=== PATIENT | female | born 1965 | race Caucasian/White ===

== ENCOUNTER 2018-01-04 22:50 | Observation (INO) | payer BC ==
[2018-01-04] MEDS ORDERED: NITROGLYCERIN OINT 1 INCH/GM PACKET TOPICAL STA (23:12)
[2018-01-04] MEDS ORDERED: LORazepam 2 MG/ML INJ IV STA (23:12)
[2018-01-04] MEDS ORDERED: ASPIRIN 81 MG PO STA (23:12)
--- NOTE | 2018-01-04 23:15 | ED ---
Chest Pain HPI - General Chief Complaint: Chest Pain Stated Complaint: Shoulder Pain/Chest Pain Time Seen by Provider: 01/04/18 23:02 Source: patient Mode of arrival: ambulatory Limitations: no limitations - History of Present Illness Initial Comments: This 52-year-old white female presents with a complaint of some left-sided chest pain. This seems to radiate into her left neck and left arm. She complains of some left arm numbness. She also complains of having occasional blurry vision. She denies any previously known cardiac or pulmonary problems. She denies any leg pain or swelling. She denies any history DVT or PE. She has never had a stress test or heart catheterization. She does complain of increased stress related to her 16-year-old. She apparently was hyperventilating earlier and feels as though she may have a degree of anxiety reaction. No other complaints or modifying factors. - Related Data Home Medications Medication Instructions Recorded Confirmed Cholecalciferol [Vitamin D3] 1,000 unit PO DAILY 01/04/18 01/04/18 Cyanocobalamin (Vitamin B-12) 1,000 mcg PO DAILY 01/04/18 01/04/18 [Vitamin B-12] HYDROcodone/APAP 7.5-325MG [[place] 1 tab PO Q4H PRN 01/04/18 01/04/18 7.5-325] Multivitamins, Thera [Multivitamin 1 tab PO DAILY 01/04/18 01/04/18 (formulary)] Allergies Allergy/AdvReac Type Severity Reaction Status Date / Time No Known Allergies Allergy Verified 01/04/18 23:16 Review of Systems ROS Statement: Those systems with pertinent positive or pertinent negative responses have been documented in the HPI. ROS Other: All systems not noted in ROS Statement are negative. Past Medical History Past Medical History: No Reported History History of Any Multi-Drug Resistant Organisms: None Reported Past Surgical History: Breast Surgery, Cholecystectomy, Hysterectomy Past Psychological History: No Psychological Hx Reported Smoking Status: Current every day smoker Past Alcohol Use History: None Reported Past Drug Use History: Marijuana General Exam - General Exam Comments Initial Comments: GENERAL: The patient is well nourished and well hydrated. VITAL SIGNS: Heart rate, blood pressure, respiratory rate reviewed as recorded in nurse's notes. EYES: Pupils are round and reactive. Extraocular movements are intact. No conjunctival / lid redness or swelling. ENT: No external evidence of injury, swelling, or ecchymosis. Airway is patent. Throat is clear. NECK: Nontender. No swelling or evidence of injury. No subcutaneous emphysema. Trachea is midline. No thyroid mass. HEART: Regular rate and rhythm. Good peripheral pulses. LUNGS/CHEST: Breath sounds clear and equal bilaterally. No rales, rhonchi, or wheezes. No ecchymosis, subcutaneous emphysema, or tenderness. ABDOMEN: Abdomen soft without tenderness. No palpable masses or organomegaly. No peritoneal signs. No abdominal wall swelling or ecchymosis. EXTREMITIES: No extremity tenderness. Normal muscle tone and function. No thoracolumbar tenderness. NEUROLOGIC: Sensation is grossly intact. Cranial nerve exam reveals face is symmetrical, tongue is midline, speech is clear. SKIN: No abrasions or ecchymosis is noted. No induration or masses noted. PSYCHIATRIC: Alert and oriented. Appropriate behavior and judgment. Appears anxious at times. Limitations: no limitations Course Vital Signs 01/04/18 22:52 Temperature 98.0 F Pulse Rate 80 Respiratory 20 Rate Blood Pressure 161/77 O2 Sat by Pulse 99 Oximetry Chest Pain MDM - MDM The patient was seen and examined. All diagnostics are reviewed. An EKG is done and this shows a normal sinus rhythm at a rate of 64. There is no acute ST -T wave changes noted. DE intervals 146, QRS duration is 76, and the QTC intervals 408. The patient receives some aspirin, Nitropaste, and Ativan. The chest x-ray does not show any acute processes. The cardiac profile labs are all essentially within normal limits. The patient is feeling much improved on recheck. The exact cause of her symptoms is not definitively determine but is felt as though the possibility of acute coronary syndrome is viable option. The possibility of this being related to anxiety it is possible as well. Is felt as though she would require admission for further Cardiologic workup. She is agreeable. Case will be discussed with internal medicine shortly patient is admitted for observation. Disposition Clinical Impression: Unstable angina pectoris, Chest pain, Anxiety, Hypertension Disposition: ADMITTED IP TO THIS [facility] Condition: Fair Time of Disposition: 00:37 Decision Date: 01/05/18 Decision Time: 00:37
[2018-01-04 23:26] LABS: Basophils % (A) 0 %; Eosinophils # (A) 0.2 k/uL (0-0.7); Eosinophils % (A) 2 %; HCT 37.4 % (34.0-46.0); HGB 12.7 gm/dL (11.4-16.0); Lymphocytes # (A) 3.1 k/uL (1.0-4.8); Lymphocytes % (A) 29 %; MCH 29.8 pg (25.0-35.0); MCV 87.7 fL (80.0-100.0); Monocytes # (A) 0.6 k/uL (0-1.0); Monocytes % (A) 6 %; Neutrophils # (A) 6.6 k/uL (1.3-7.7); Neutrophils % (A) 61 %; Platelet Count 429 k/uL (150-450); RBC 4.26 m/uL (3.80-5.40); RDW 12.9 % (11.5-15.5); WBC 10.8 k/uL (3.8-10.6)
[2018-01-04 23:35] LABS: ALT 26 U/L (9-52); AST 31 U/L (14-36); Albumin 4.4 g/dL (3.5-5.0); Alkaline Phosphatase 83 U/L (38-126); Anion Gap 9 mmol/L; Blood Urea Nitrogen 22 mg/dL (7-17); Calcium 10.2 mg/dL (8.4-10.2); Carbon Dioxide 32 mmol/L (22-30); Chloride 105 mmol/L (98-107); Glucose 106 mg/dL (74-99); Magnesium 1.7 mg/dL (1.6-2.3); Potassium 4.3 mmol/L (3.5-5.1); Sodium 146 mmol/L (137-145); Total Bilirubin 0.2 mg/dL (0.2-1.3); Total Protein 6.9 g/dL (6.3-8.2)
[2018-01-04 23:39] LABS: Partial Thromboplastin Time 25.2 sec (22.0-30.0); Prothrombin Time 9.7 sec (9.0-12.0)
[2018-01-04 23:47] LABS: Creatine Kinase 82 U/L (30-135)
[2018-01-05] LABS: Creatine Kinase MB 0.9 ng/mL (0.0-2.4); Troponin I <0.012 ng/mL (0.000-0.034)
--- NOTE | 2018-01-05 00:05 | XR ---
EXAMINATION TYPE: XR chest 2V DATE OF EXAM: 01/04/2018 COMPARISON: NONE HISTORY: Chest pain TECHNIQUE: Frontal and lateral views of the chest are obtained. FINDINGS: Heart and mediastinum are normal. Lungs are clear. Diaphragm is normal. Bony thorax is int act. IMPRESSION: Normal chest
[2018-01-05] MEDS ORDERED: NITROGLYCERIN SL TABS 0.4 MG TAB SUBLINGUAL PRN (00:38)
[2018-01-05] MEDS ORDERED: ACETAMINOPHEN TAB 325 MG TAB PO PRN (00:38)
[2018-01-05] MEDS ORDERED: HYDROcodone/APAP 7.5-325MG 1 EACH TAB PO PRN (00:40)
[2018-01-05 06:14] LABS: Creatine Kinase 68 U/L (30-135)
[2018-01-05 06:27] LABS: Creatine Kinase MB 1.1 ng/mL (0.0-2.4); Troponin I <0.012 ng/mL (0.000-0.034)
[2018-01-05] MEDS: NITROGLYCERIN OINT 1 INCH/GM PACKET TOPICAL SCH ×3 (06:32→21:23)
[2018-01-05 12:15] LABS: Creatine Kinase 69 U/L (30-135)
[2018-01-05 12:26] LABS: Troponin I <0.012 ng/mL (0.000-0.034)
[2018-01-05] MEDS: CYANOCOBALAMIN 500 MCG TAB PO SCH (14:50)
[2018-01-05] MEDS: MULTIVITAMINS, THERA 1 EACH TAB PO SCH (14:50)
[2018-01-05] MEDS: CHOLECALCIFEROL 1,000 UNIT TAB PO SCH (14:50)
[2018-01-05] MEDS: ENOXAPARIN 40 MG/0.4 ML SYRINGE SQ SCH (14:51)
[2018-01-05] MEDS: METOPROLOL TARTRATE 25 MG TAB PO SCH ×2 (14:51→21:23)
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
--- NOTE | 2018-01-05 16:47 | ECHOF ---
Referral Reason:cp MEASUREMENTS -------- HEIGHT: 152.4 cm WEIGHT: 77.1 kg BP: RVIDd: 2.5 cm (< 3.3) IVSd: 1.1 cm (0.6 - 1.1) LVIDd: 3.7 cm (3.9 - 5.3) LVPWd: 1.0 cm (0.6 - 1.1) IVSs: 1.3 cm LVIDs: 2.3 cm LVPWs: 1.1 cm LA Diam: 3.3 cm (2.7 - 3.8) LAESV Index (A-L): 20.44 ml/m Ao Diam: 2.8 cm (2.0 - 3.7) AV Cusp: 1.9 cm (1.5 - 2.6) LA Diam: 3.5 cm (2.7 - 3.8) MV EXCURSION: 17.007 mm (> 18.000) MV EF SLOPE: 71 mm/s (70 - 150) EPSS: 0.3 cm MV E Demond: 0.54 m/s MV DecT: 260 ms MV A Demond: 0.60 m/s MV E/A Ratio: 0.89 RAP: 5.00 mmHg RVSP: 24.69 mmHg FINDINGS -------- Sinus rhythm. This was a technically good study. LV size, wall thickness and systolic function are normal, with an EF greater than 55%. The left binh tricular size is normal. The right ventricle is normal in size. Normal LA size by volume 22+/-6 ml/m2. The right atrial size is normal. The aortic valve is trileaflet, and appears structurally normal. No aortic stenosis or regurgitation. Mild mitral regurgitation is present. Mild tricuspid regurgitation present. There is no evidence of pulmonary hypertension. The right v entricular systolic pressure, as measured by Doppler, is 24.69mmHg. There is no pulmonic regurgitation present. The aortic root size is normal. There is no pericardial effusion. CONCLUSIONS -------- 1. LV size, wall thickness and systolic function are normal, with an EF greater than 55%. 2. The left ventricular size is normal. 3. The aortic valve is trileaflet, and appears structurally normal. No aortic stenosis or regurgitati on. 4. Mild mitral regurgitation is present. 5. Mild tricuspid regurgitation present. 6. There is no evidence of pulmonary hypertension. 7. The right ventricular systolic pressure, as measured by Doppler, is 24.69mmHg. 8. There is no pulmonic regurgitation present. 9. The aortic root size is normal. 10. There is no pericardial effusion. SENIOR MANAGER CREATIVE SERVICES: Meme Merrill RDCS
[2018-01-05] MEDS: ALPRAZolam 0.5 MG TAB PO PRN (17:43)
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
[2018-01-06] MEDS: NITROGLYCERIN OINT 1 INCH/GM PACKET TOPICAL SCH ×2 (00:32→05:42)
[2018-01-06 08:58] VITALS: RESP 16
[2018-01-06] MEDS ORDERED: ASPIRIN 325 MG TAB PO SCH (09:00)
[2018-01-06] MEDS ORDERED: ASPIRIN 81 MG PO SCH (09:00)
[2018-01-06] MEDS: CHOLECALCIFEROL 1,000 UNIT TAB PO SCH (10:20)
[2018-01-06] MEDS: CYANOCOBALAMIN 500 MCG TAB PO SCH (10:20)
[2018-01-06] MEDS: METOPROLOL TARTRATE 25 MG TAB PO SCH (10:20)
[2018-01-06] MEDS: MULTIVITAMINS, THERA 1 EACH TAB PO SCH (10:20)
[2018-01-06] MEDS: ENOXAPARIN 40 MG/0.4 ML SYRINGE SQ SCH (10:20)
--- NOTE | 2018-01-06 11:50 | P.PN ---
Subjective Progress Note Date: 01/06/18 Mrs. Prajapati is seen today in follow-up. She states her chest pain has subsided but she still feels a mild discomfort in the left neck region. No specific aggravating or alleviating factors. Cardiac enzymes negative x3, telemetry tracings have been unremarkable. We will proceed with stress echocardiogram today as discussed yesterday. She is agreeable. Objective - Vital Signs Vital signs: Vital Signs Temp 97.7 F 01/06/18 08:00 Pulse 73 01/06/18 08:00 Resp 16 01/06/18 08:00 BP 121/76 01/06/18 08:00 Pulse Ox 95 01/06/18 08:00 Intake & Output 01/05/18 01/06/18 01/06/18 18:59 06:59 18:59 Weight 77.2 kg Other: Voiding Method Toilet Toilet Toilet # Voids 2 1 - Exam Blood pressure 121/76 heart rate 73 afebrile and maintaining oxygen saturations on room air. GENERAL: Well-appearing, well-nourished and in no acute distress. NECK: Supple without JVD or thyromegaly. LUNGS: Breath sounds clear to auscultation bilaterally. Respiration equal and unlabored. No wheezes, rales or rhonchi. HEART: Regular rate and rhythm without murmurs, rubs or gallops. S1 and S2 heard. EXTREMITIES: Normal range of motion, no edema. No clubbing or cyanosis. Peripheral pulses intact and strong. - Labs CBC & Chem 7: 01/04/18 23:17 01/04/18 23:17 Labs: Abnormal Lab Results - Last 24 Hours (Table) 01/05/18 Range/Units 05:17 Triglycerides 158 H (<150) mg/dL HDL Cholesterol 37 L (40-60) mg/dL Assessment and Plan Assessment: ASSESSMENT 1. Chest pain, atypical. EKG shows no evidence of acute ischemia and cardiac enzymes are negative. May be related to an acute anxiety situation with increased stress with her teenage daughter. 2. Anxiety 3. Chronic tobacco abuse PLAN Proceed with stress echocardiogram. If negative she is stable from cardiac perspective. Plan discussed with the patient. Nurse Practitioner note has been reviewed, I agree with a documented findings and plan of care. Patient was seen and examined.
[2018-01-06 11:57] VITALS: BP 99/67; PULSE 83; TEMP 98.2
[2018-01-06] MEDS: ALPRAZolam 0.5 MG TAB PO PRN (14:13)
--- NOTE | 2018-01-06 16:57 | P.STRESS ---
- Stress Test Note Stress Test Results/Findings: Exam Performed: stress echo exercise Exam Date: 01/06/18 Reason for Exam: CHEST APIN Height: 5 ft 1 in Weight: 77.2 kg Protocol: LUCIE Stage: 2 Duration of Exercise: 6:00 Resting Heart Rate: 95 Resting Blood Pressure: 180/114 Maximum Achieved Heart Rate: 150 Maximum Achieved Blood Pressure: 198/89 85% PMHR: 142 100% PMHR: 167 METS: 7.1 Technologist Comment: Stress Test Results/Findings: This is a 52-year-old female who is being evaluated for symptoms of chest pain and shortness of breath. She has history of smoking. Patient Walked on the Lucie protocol for 6 minutes achieving a maximal heart rate of 150 with a blood pressure 157/87. Patient did not express any chest pain. EKGs at rest showed sinus rhythm with normal IN interval and QRS duration. EKGs taken during and after exercise did not reveal any changes of ischemia. Echo data: Baseline echo images show normal wall motion and thickening. Exercise echo images showed augmentation of wall motion and thickening in all the segments. Final impression: #1. Negative stress test #2. Negative stress echo.
--- NOTE | 2018-01-11 13:18 | ECHOS ---
- Stress Test Note Stress Test Results/Findings: Exam Performed: stress echo exercise Exam Date: 01/06/18 Reason for Exam: CHEST APIN Height: 5 ft 1 in Weight: 77.2 kg Protocol: LUCIE Stage: 2 Duration of Exercise: 6:00 Resting Heart Rate: 95 Resting Blood Pressure: 180/114 Maximum Achieved Heart Rate: 150 Maximum Achieved Blood Pressure: 198/89 85% PMHR: 142 100% PMHR: 167 METS: 7.1 Technologist Comment: Stress Test Results/Findings: This is a 52-year-old female who is being evaluated for symptoms of chest pain and shortness of breath. She has history of smoking. Patient Walked on the Lucie protocol for 6 minutes achieving a maximal heart rate of 150 with a blood pressure 157/87. Patient did not express any chest pain. EKGs at rest showed sinus rhythm with normal [place] interval and QRS duration. EKGs taken during and after exercise did not reveal any changes of ischemia. Echo data: Baseline echo images show normal wall motion and thickening. Exercise echo images showed augmentation of wall motion and thickening in all the segments. Final impression: #1. Negative stress test #2. Negative stress echo. WILDD
== END 2018-01-06 15:19 | disposition home or self-care (01) ==
LOC: EC 22:50 → 3OBS 01-05 00:38
PROVIDERS: ADMIT Hospitalist; ATTEND Hospitalist
DX: R07.89 Other chest pain (principal); F41.9 Anxiety disorder, unspecified; M79.7 Fibromyalgia; M54.2 Cervicalgia; F17.210 Nicotine dependence, cigarettes, uncomplicated; F12.90 Cannabis use, unspecified, uncomplicated; Z87.19 Personal history of other diseases of the digestive system; Z80.1 Family history of malignant neoplasm of trachea, bronchus and lung
CPT/HCPCS: 36415; 93005; 93017; 93306; 93350; 80061; 80053; 84443; 82550 ×2; 82553 ×2; 83735; 84484 ×2; 85025; 85610; 85730; 71046; 99285; 96374; G0378 ×2; J2060

== ENCOUNTER 2019-12-03 12:04 | Emergency (ER) | payer BC ==
[2019-12-03 12:37] VITALS: BP 131/79; PULSE 81; RESP 16; TEMP 98
[2019-12-03] MEDS ORDERED: LIDOCAINE 5% PATCH TOPICAL STA (13:01)
[2019-12-03] MEDS ORDERED: KETOROLAC 30 MG/ML 1 ML VIAL IM STA (13:02)
[2019-12-03] MEDS ORDERED: CYCLOBENZAPRINE 10 MG TAB PO STA (13:02)
[2019-12-03] MEDS ORDERED: CYCLOBENZAPRINE 10MG STARTER 3 TAB BTL PO STA (13:42)
--- NOTE | 2019-12-03 13:43 | ED ---
Back Pain HPI - General Source: patient Limitations: no limitations <Zak Cleveland - Last Filed: 12/03/19 20:13> <Yuliet Galvez - Last Filed: 12/05/19 22:34> - General Chief Complaint: Back Pain/Injury Stated Complaint: sciatica/left hip pain Time Seen by Provider: 12/03/19 12:54 - History of Present Illness Initial Comments: Patient is a 54-year-old female with history of interstitial cystitis and fiber myalgia presenting to the emergency department with chief complaint of back pain. Patient states she has chronic back pain but now has an acute exacerbation of his symptoms. Patient states she currently takes gabapentin to alleviate the symptoms. States she attempted couple of scratches which did not help her pain. States the pain is located in the left, paraspinal lumbosacral region and radiates along the posterior aspect the left lower extremity to the popliteal region. States ambulation makes the pain is worse. No red flags. No saddle anesthesia. No urinary bowel incontinence. Denies abdominal pain or chest pain (Zak Cleveland) - Related Data Home Medications Medication Instructions Recorded Confirmed Cholecalciferol [Vitamin D3 (25 1,000 unit PO DAILY 01/04/18 01/04/18 Mcg = 1000 Iu)] Cyanocobalamin (Vitamin B-12) 1,000 mcg PO DAILY 01/04/18 01/04/18 [Vitamin B-12] HYDROcodone/APAP 7.5-325MG [[place] 1 tab PO Q4H PRN 01/04/18 01/04/18 7.5-325] Multivitamins, Thera [Multivitamin 1 tab PO DAILY 01/04/18 01/04/18 (formulary)] Previous Rx's Medication Instructions Recorded Metoprolol Tartrate [Lopressor] 25 mg PO BID #60 tab 01/05/18 Cyclobenzaprine [Flexeril] 10 mg PO TID PRN #15 tab 12/03/19 Allergies Allergy/AdvReac Type Severity Reaction Status Date / Time No Known Allergies Allergy Verified 12/03/19 12:35 Review of Systems ROS Other: All systems not noted in ROS Statement are negative. <Zak Cleveland - Last Filed: 12/03/19 20:13> ROS Other: All systems not noted in ROS Statement are negative. <Yuliet Galvez - Last Filed: 12/05/19 22:34> ROS Statement: Those systems with pertinent positive or pertinent negative responses have been documented in the HPI. Past Medical History Past Medical History: Fibromyalgia Additional Past Medical History / Comment(s): Interstitial cystitis, "chest spasms ever since cholecystectomy 10 yrs ago", diverticular dx. History of Any Multi-Drug Resistant Organisms: None Reported Past Surgical History: Breast Surgery, Cholecystectomy, Hysterectomy Additional Past Surgical History / Comment(s): Bilateral breast reduction, bilateral oophorectomy, colonoscopy. Past Anesthesia/Blood Transfusion Reactions: No Reported Reaction Additional Past Anesthesia/Blood Transfusion Reaction / Comment(s): Pt states she has received blood in past without reaction. Past Psychological History: No Psychological Hx Reported Smoking Status: Current every day smoker Past Alcohol Use History: None Reported Past Drug Use History: Marijuana - Past Family History Father History Unknown: Yes Mother Family Medical History: Cancer Additional Family Medical History / Comment(s): Mother of lung cancer at the age of 67yrs. <Zak Cleveland - Last Filed: 12/03/19 20:13> General Exam Limitations: no limitations General appearance: alert, in no apparent distress Head exam: Present: atraumatic, normocephalic, normal inspection Eye exam: Present: normal appearance Pupils: Present: normal accommodation ENT exam: Present: normal exam Neck exam: Present: normal inspection, full ROM Respiratory exam: Present: normal lung sounds bilaterally Cardiovascular Exam: Present: regular rate, normal rhythm, normal heart sounds Extremities exam: Present: normal inspection, full ROM Back exam: Present: normal inspection, full ROM, tenderness, paraspinal tenderness (Left paraspinal tenderness in the lumbosacral region. Positive leg raise test. Sciatica type symptoms.). Absent: vertebral tenderness Neurological exam: Present: alert, oriented X3 Psychiatric exam: Present: normal affect, normal mood Skin exam: Present: warm, dry, intact, normal color <Zak Cleveland - Last Filed: 12/03/19 20:13> Course Vital Signs 12/03/19 12:36 Temperature 98.0 F Pulse Rate 81 Respiratory 16 Rate Blood Pressure 131/79 O2 Sat by Pulse 98 Oximetry Medical Decision Making <Zak Cleveland - Last Filed: 12/03/19 20:13> <Yuliet Galvez - Last Filed: 12/05/19 22:34> - Medical Decision Making Patient is a 54-year-old female with history of interstitial cystitis and fibromyalgia presenting to the emergency department with a chief complaint of back pain. She reports a sudden onset of symptoms and attempted to take gabapentin with minimal improvement. Physical examination patient does have a positive leg raise test with paraspinal tenderness in the left lumbosacral region with pain radiating along the posterior aspect of the left lower extremity to the popliteal region. Patient was given a Lidoderm patch, Toradol and Flexeril. Reevaluation patient reports the symptoms have drastically improved. Patient is able to ambulate. Patient states that she will follow with primary care. Patient will be discharged with Flexeril and advised not to drive or operate heavy machinery when taking the medication.. strict return parameters were thoroughly discussed with patient is a 16 agreeable. case discussed with physician. (Zak Cleveland) I was available for consultation in the emergency department. The history and physical exam were done by the midlevel provider. I was consulted for this patients care. I reviewed the case with the midlevel provider and based on their presentation of the patient, I agree with the assessment, medical decision making and plan of care as documented. Chart was dictated using [employer] dictation software. Attempts were made to correct any dictation errors however some typographical errors may persist. (Yuliet Galvez) Disposition Is patient prescribed a controlled substance at d/c from ED?: No Time of Disposition: 13:43 <Zak Cleveland - Last Filed: 12/03/19 20:13> <Yuliet Galvez - Last Filed: 12/05/19 22:34> Clinical Impression: Mechanical back pain, Strain of lumbar region Disposition: HOME SELF-CARE Condition: Stable Instructions (If sedation given, give patient instructions): Acute Low Back Pain (ED) Additional Instructions: Take prescribed medication as directed. Alternate between Tylenol and Motrin for pain control. Return to emergency department if symptoms worsen. Prescriptions: Cyclobenzaprine [Flexeril] 10 mg PO TID PRN #15 tab PRN Reason: Muscle Spasm Referrals: Moe Momin DO [Primary Care Provider] - 1-2 days
== END 2019-12-03 13:45 | disposition home or self-care (01) ==
LOC: EC 12:04
DX: S39.012A Strain of muscle, fascia and tendon of lower back, initial encounter (principal); G89.29 Other chronic pain; M79.7 Fibromyalgia; F17.200 Nicotine dependence, unspecified, uncomplicated; Z79.899 Other long term (current) drug therapy; X58.XXXA Exposure to other specified factors, initial encounter
CPT/HCPCS: 99283; 96372; J1885